=== PATIENT | male | born 1960 | race Caucasian/White ===

== ENCOUNTER 2017-05-06 06:24 | Day surgery (SDC) | payer SELFPAY ==
[2017-05-06] MEDS ORDERED: LIDOCAINE 1% MDV 20ML VIAL SQ (06:45)
[2017-05-06] MEDS: LR 1,000 ML IV (07:05)
[2017-05-06] MEDS ORDERED: PROPOFOL 200 MG/20 ML VIAL As Ordered (07:19)
[2017-05-06] MEDS ORDERED: LIDOCAINE 2% INJ 100 MG/5 ML SDV (FOR ANES.) As Ordered (07:19)
[2017-05-06] MEDS ORDERED: MIDAZOLAM INJ 2 MG/2 ML VIAL (J2250) As Ordered ×2 (07:20→07:21)
[2017-05-06] MEDS ORDERED: fentaNYL 100 MCG/2 ML INJECTION (J3010) As Ordered (07:20)
[2017-05-06] MEDS ORDERED: ONDANSETRON 4MG/2ML VIAL (J2405) As Ordered (07:46)
[2017-05-06] MEDS ORDERED: dexameTHASONE 4 MG/ML 1ML VIAL (J1100) As Ordered (07:46)
[2017-05-06] MEDS ORDERED: METOCLOPRAMIDE INJ 10MG/2ML VIAL (J2765) As Ordered (07:46)
[2017-05-06] MEDS: LIDOCAINE 2% MDV 20 ML VIAL As Ordered (07:59)
[2017-05-06] MEDS: BUPIVACAINE HCL 0.25% 10 ML VIAL As Ordered (07:59)
[2017-05-06] MEDS: BACITRACIN OINT 30GM As Ordered (07:59)
[2017-05-06] MEDS ORDERED: PERCOCET 5MG/325MG TAB PO ×2 (09:15)
[2017-05-06] MEDS ORDERED: LR 1,000 ML IV (09:15)
[2017-05-06] MEDS ORDERED: fentaNYL 100 MCG/2 ML INJECTION (J3010) IV (09:15)
[2017-05-06] MEDS ORDERED: ONDANSETRON 4MG/2ML VIAL (J2405) IV (09:15)
[2017-05-06] MEDS: PERCOCET 5MG/325MG TAB PO (10:36)
== END 2017-05-06 11:40 | disposition home or self-care (01) ==
LOC: M SDC 06:24
DX: N43.3 Hydrocele, unspecified (principal); Z87.820 Personal history of traumatic brain injury
CPT/HCPCS: 55040